=== PATIENT | male | born 1990 ===

== ENCOUNTER 2017-03-06 13:48 | Emergency (ER) | payer OTHER ==
[2017-03-06 14:27] VITALS: RESP 20
--- NOTE | 2017-03-06 15:23 | C.PDOC ---
History Of Present Illness 27 y/o male complaining of sore throat, congestion, and cough for the last three days without fever, chills, chest pain, shortness of breath, or other complaint. He has not tried any medications for his symptoms. Time Seen by Provider: 03/06/17 14:59 Chief Complaint (Nursing): Cough, Cold, Congestion History Per: Patient Onset/Duration Of Symptoms: Days (3) Current Symptoms Are (Timing): Still Present Location Of Pain: Throat Associated Symptoms: Sore Throat, Cough, Nasal Congestion. denies: Fever, Chills, Neck Pain, Sinus Drainage, Myalgias, Nausea, Vomiting, Diarrhea Severity: Moderate Recent travel outside of the [place]: No Additional History Per: Patient Past Medical History Vital Signs: Last Vital Signs Temp 98.4 F 03/06/17 16:36 Pulse 91 H 03/06/17 16:36 Resp 20 03/06/17 16:36 BP 137/79 03/06/17 16:36 Pulse Ox 98 03/06/17 18:05 - Medical History PMH: No Chronic Diseases Surgical History: Appendectomy - [facility] Procedures INJECT/INFUSE NEC (03/26/14) Family History: States: Unknown Family Hx - Social History Hx Alcohol Use: No Hx Substance Use: No - Immunization History Hx Tetanus Toxoid Vaccination: No Hx Influenza Vaccination: No Hx Pneumococcal Vaccination: No Review Of Systems Except As Marked, All Systems Reviewed And Found Negative. ENT: Positive for: Nose Congestion, Throat Pain Respiratory: Positive for: Cough Physical Exam - Physical Exam Appears: Well, Non-toxic, No Acute Distress Skin: Normal Color, Warm, Dry, No Rash Head: Atraumatic, Normacephalic Eye(s): bilateral: Normal Inspection, EOMI Ear(s): Bilateral: Normal Nose: No Discharge, No Epistaxis, No Tenderness, Other (+congestion) Oral Mucosa: Moist, No Drooling Tongue: Normal Appearing Throat: Normal, No Erythema, No Exudate, No Drooling, No Mass Neck: Normal, Normal ROM, Supple Lymphatic: Normal Exam Chest: Symmetrical Cardiovascular: Rhythm Regular Respiratory: Normal Breath Sounds Extremity: Normal ROM Neurological/Psych: Oriented x3, Normal Speech ED Course And Treatment O2 Sat by Pulse Oximetry: 98 Progress Note: discussed symptoms liekly viral, instructed symptomatic treatment. Medical Decision Making Medical Decision Making: Impression: URI Disposition - Disposition Disposition: HOME/ ROUTINE Disposition Time: 15:23 Condition: STABLE Additional Instructions: Follow up with your primary medical doctor or clinic in 2-5 days for further evaluation. Take medications as prescribed. Return to the emergency department at any time if symptoms persist or worsen. Prescriptions: Guaifen/Dextromethorphan/PE [Mucinex Fast-Max Congest-Cough] 1 each PO Q6 #20 tablet Naproxen [Naprosyn] 1 tab PO BID PRN #20 tab PRN Reason: Pain Oxymetazoline 0.05% [Afrin 0.05%] 1 spr NS Q12H #1 bottle Instructions: Upper Respiratory Infection (ED) Forms: [email or web address] ([place]) - Clinical Impression Clinical Impression: Upper respiratory infection - Scribe Statement The provider has reviewed the documentation as recorded by the Scribe (Eliza Nino)
[2017-03-06 16:37] VITALS: BP 137/79; PULSE 91; TEMP 98.4
[2017-03-06 18:05] VITALS: O2SAT 98
== END 2017-03-06 16:37 | disposition home or self-care (01) ==
LOC: C.ER 13:48
DX: J06.9 Acute upper respiratory infection, unspecified (principal)

== ENCOUNTER 2018-02-22 19:24 | Observation (INO) | payer OTHER ==
[2018-02-22] MEDS ORDERED: Sodium Chloride 0.9% 1,000 ML IV ONE (20:34)
[2018-02-22] MEDS ORDERED: Iohexol 240 (50 ml) PO STA (20:34)
--- NOTE | 2018-02-22 20:38 | C.PDOC ---
History Of Present Illness 28 y/o male c/o 2 days of vomiting and diarrhea yesterday with diarrhea only today (soft yellow stool) and subjective fever x 2 days. no recent travel. +sick contact of mother who had similar symptoms 4 days ago. pt tolerates gator zaki. seen by mother's pmd yesterday and given prilosec with no improvement. Time Seen by Provider: 02/22/18 20:23 Chief Complaint (Nursing): Fever History Per: Patient, Family History/Exam Limitations: no limitations Onset/Duration Of Symptoms: Days (2) Current Symptoms Are (Timing): Still Present Sick Contacts (Context): Family Member(s) Associated Symptoms: Fever, Vomiting, Diarrhea Ear Symptoms: Bilateral: None Past Medical History Reviewed: Historical Data, Nursing Documentation, Vital Signs Vital Signs: Last Vital Signs Temp 102.9 F H 02/22/18 20:13 Pulse 117 H 02/22/18 20:13 Resp 22 02/22/18 20:13 BP 128/83 02/22/18 20:13 Pulse Ox 100 02/22/18 20:13 - Medical History PMH: No Chronic Diseases Surgical History: Appendectomy, Tonsillectomy - [facility] Procedures INJECT/INFUSE NEC (03/26/14) Family History: States: Unknown Family Hx - Social History Hx Tobacco Use: No Hx Alcohol Use: No Hx Substance Use: No - Immunization History Hx Tetanus Toxoid Vaccination: No Hx Influenza Vaccination: No Hx Pneumococcal Vaccination: No Review Of Systems Constitutional: Positive for: Fever, Chills ENT: Negative for: Ear Pain Cardiovascular: Negative for: Chest Pain Respiratory: Negative for: Cough Gastrointestinal: Positive for: Nausea, Vomiting, Abdominal Pain, Diarrhea Genitourinary: Negative for: Dysuria, Frequency Skin: Negative for: Rash Neurological: Negative for: Weakness, Numbness Physical Exam - Physical Exam Appears: Non-toxic, Other (uncomfortable, obese. ) Skin: Normal Color, Dry, Other (hot) Head: Atraumatic, Normacephalic Eye(s): bilateral: Normal Inspection Oral Mucosa: Dry Tongue: Other (dry appearing) Lips: Other (chapped) Throat: No Erythema Neck: Supple Chest: No Deformity, No Tenderness Cardiovascular: No Rhythm Irregular, Other (tachycardic) Respiratory: No Decreased Breath Sounds, No Rales, No Rhonchi, No Wheezing Gastrointestinal/Abdominal: Bowel Sounds, Soft, Tenderness (ruq, epigastric and m,ild left upper quadrant tenderness) Back: No CVA Tenderness Extremity: Normal ROM, No Tenderness, No Swelling Neurological/Psych: Oriented x3, Normal Speech, Normal Cognition ED Course And Treatment - Laboratory Results Result Diagrams: 02/22/18 21:05 02/22/18 21:05 O2 Sat by Pulse Oximetry: 100 Medical Decision Making Medical Decision Makin28 y/o male with n/v/d, fever, x 2 days, with abdominal pain on exam; ddx incl udes gastroenteritis, cholecystitis, pancreatitis: will get labs, give ivf. pep--brigitte, ct scan and re-eval. 2300 ct results received with possible large bowel ileus. will contact surgery for consult. [phone] discussed with surgical services manager; no surgical intervention needed at this time. given pt's fever, ct results and bandemia, will admit to medicine. Dr Foley paged approx 1 am [address] Foley, will admit to his service. Disposition Discussed With : Zan Foley Doctor Will See Patient In The: Hospital Counseled Patient/Family Regarding: Studies Performed, Diagnosis, Need For Followup - Disposition Disposition: HOSPITALIZED Disposition Time: 01:46 Condition: STABLE - Clinical Impression Clinical Impression: Gastroenteritis, Bandemia, Dehydration, mild
[2018-02-22] MEDS ORDERED: Sodium Chloride 0.9% 1,000 ML ONE (21:05)
[2018-02-22 21:08] LABS: BASO % 0.2 % (0.0-2.0); EOS % 0.2 % (0.0-4.0); HEMOGLOBIN 15.2 g/dL (12.0-18.0); LYMPH # 0.3 K/uL (1.0-4.3); LYMPH % 3.8 % (20.0-40.0); MEAN CELL VOLUME 87.1 fL (80.0-94.0); MEAN CORPUSCULAR HEMOGLOBIN 29.5 pg (27.0-31.0); MEAN CORPUSCULAR HGB CONC 33.9 g/dL (33.0-37.0); MEAN PLATELET VOLUME 8.2 fL (7.2-11.7); MONO # 0.5 K/uL (0.0-0.8); NEUT # 7.4 K/uL (1.8-7.0); NEUT % 89.8 % (50.0-75.0); PLATELET COUNT 207 K/uL (130-400); RBC 5.16 Mil/uL (4.40-5.90); RED CELL DISTRIBUTION WIDTH 13.2 % (11.5-14.5); WHITE BLOOD COUNT 8.3 K/uL (4.8-10.8)
[2018-02-22] MEDS ORDERED: Iohexol 240 (50 ml) ONE (21:08)
[2018-02-22 21:22] LABS: ALB/GLOB RATIO 1.5 (1.0-2.1); ALBUMIN 4.3 g/dL (3.5-5.0); ALT/SGPT 78 U/L (21-72); AST/SGOT 61 U/L (17-59); BLOOD UREA NITROGEN 13 mg/dL (9-20); CALCIUM 8.6 mg/dl (8.6-10.4); GFR NON-AFRICAN AMERICAN > 60; LIPASE 37 U/L (23-300)
[2018-02-22] MEDS ORDERED: Iohexol 300 100 ML IJ ONE (21:31)
[2018-02-22 21:32] LABS: SQUAMOUS EPITHIAL < 1 /hpf (0-5); URINE BACTERIA RARE (<OCC); URINE BILIRUBIN NEGATIVE (NEGATIVE); URINE BLOOD 1+ (NEGATIVE); URINE CLARITY Clear (Clear); URINE COLOR Amber (YELLOW); URINE GLUCOSE (UA) NORMAL (Normal); URINE LEUKOCYTE ESTERASE NEG Leu/uL (Negative); URINE PROTEIN 1+ mg/dL (NEGATIVE)
[2018-02-22] MEDS ORDERED: Potassium Chloride 20 mEq ER Tab PO STA (21:37)
[2018-02-22 21:39] LABS: BANDS 5 % (0-2); LYMPHOCYTE 3 % (20-40); MONOCYTE 9 % (0-10); NEUTROPHIL 83 % (50-75); PLATELET ESTIMATE NORMAL (NORMAL); TOTAL CELLS COUNTED 100
[2018-02-22] MEDS ORDERED: Potassium Chloride 20 mEq ER Tab PO ONE (21:44)
--- NOTE | 2018-02-23 01:02 | CP.PCM.CON ---
<Luis Ryan - Last Filed: 02/23/18 00:58> History of Present Illness - History of Present Illness History of Present Illness: General Surgery Consult Re: Large bowel ileus, elevated T Bili HPI: 28M presented to the ED with 2 days of yellow diarrhea as well as NBNB emesis yesterday. Associated with fever x 2 days and mild diffuse abd pain. No recent travel. Mother had similar symptoms 4 days prior. Seen by PMD yesterday and given Omeprazole with some mild improvement. + trace blood in stool. Denies Headache, dizziness, chills, chest pain, SOB, nausea/emesis (at this time), dysuria, hematuria, melena, hematochezia, tenesmus PMH: Denies PSH: Appendectomy, Tonsillectomy SH: No tobacco, EtOH or drug use FH: Non contributory All: NKDA Meds: See MAR Review of Systems - Review of Systems All systems: reviewed and no additional remarkable complaints except (as per HPI) Past Patient History - Past Social History Smoking Status: Never Smoked - PSYCHIATRIC Hx Substance Use: No - SURGICAL HISTORY Hx Appendectomy: Yes Hx Tonsillectomy: Yes Meds Allergies/Adverse Reactions: Allergies Allergy/AdvReac Type Severity Reaction Status Date / Time No Known Allergies Allergy Verified 03/06/17 14:27 Physical Exam - Constitutional Appears: Non-toxic, No Acute Distress - Head Exam Head Exam: ATRAUMATIC, NORMOCEPHALIC - Eye Exam Eye Exam: EOMI. absent: Scleral icterus - ENT Exam ENT Exam: Mucous Membranes Dry, Normal Oropharynx - Neck Exam Neck exam: Positive for: Full Rom. Negative for: Lymphadenopathy, Tenderness Additional comments: trachea midline - Respiratory Exam Respiratory Exam: NORMAL BREATHING PATTERN. absent: Respiratory Distress - Cardiovascular Exam Cardiovascular Exam: RRR, +S1, +S2 - GI/Abdominal Exam GI & Abdominal Exam: Soft, Tenderness (trace in RUQ). absent: Distended, Firm, Guarding, Rebound, Rigid - Rectal Exam Rectal Exam: Deferred - Extremities Exam Extremities exam: Positive for: normal capillary refill, pedal pulses present. Negative for: calf tenderness, pedal edema - Back Exam Back exam: absent: CVA tenderness (L), CVA tenderness (R) - Neurological Exam Neurological exam: Alert, Oriented x3 - Psychiatric Exam Psychiatric exam: Normal Affect, Normal Mood - Skin Skin Exam: Dry, Warm Results - Vital Signs Recent Vital Signs: Last Vital Signs Temp 100.0 F H 02/23/18 00:00 Pulse 91 H 02/23/18 00:00 Resp 19 02/23/18 00:00 BP 109/71 02/23/18 00:00 Pulse Ox 100 02/23/18 00:00 - Labs Result Diagrams: 02/22/18 21:05 02/22/18 21:05 Labs: Laboratory Results - last 24 hr 02/22/18 02/22/18 02/22/18 21:05 21:05 21:05 WBC 8.3 RBC 5.16 Hgb 15.2 Hct 44.9 MCV 87.1 MCH 29.5 MCHC 33.9 RDW 13.2 Plt Count 207 MPV 8.2 Neut % (Auto) 89.8 H Lymph % (Auto) 3.8 L [place] % (Auto) 6.0 Eos % (Auto) 0.2 Baso % (Auto) 0.2 Neut # (Auto) 7.4 H Lymph # (Auto) 0.3 L [place] # (Auto) 0.5 Eos # (Auto) 0.0 Baso # (Auto) 0.0 Neutrophils % (Manual) 83 H Band Neutrophils % 5 H Lymphocytes % (Manual) 3 L Monocytes % (Manual) 9 Platelet Estimate Normal Sodium 137 Potassium 3.1 L Chloride 105 Carbon Dioxide 18 L Anion Gap 17 BUN 13 Creatinine 1.1 Est GFR ( Amer) > 60 Est GFR (Non-Af Amer) > 60 Random Glucose 108 Calcium 8.6 Total Bilirubin 1.4 H AST 61 H ALT 78 H Alkaline Phosphatase 73 Total Protein 7.2 Albumin 4.3 Globulin 2.8 Albumin/Globulin Ratio 1.5 Lipase 37 Urine Color [place] Urine Clarity Clear Urine pH 5.0 Ur Specific [place] 1.024 Urine Protein 1+ H Urine Glucose (UA) Normal Urine Ketones 1+ H Urine Blood 1+ H Urine Nitrate Negative Urine Bilirubin Negative Urine Urobilinogen 4.0 Ur Leukocyte Esterase Neg Urine WBC (Auto) 2 Urine RBC (Auto) 25 H Ur Squamous Epith Cells < 1 Urine Bacteria Rare - Imaging and Cardiology CT scan - abdomen Status: Image reviewed by me, Report reviewed by me Assessment & Plan - Assessment and Plan (Free Text) Assessment: 28M with gastroenteritis Plan: No surgical interventions required. Recommend rehydration and repletion of electrolytes for this medical issue. Will Sign off. D/W Dr. Lane Ryan PGY4 <Shelly Sherman - Last Filed: 02/25/18 09:38> Results - Vital Signs Recent Vital Signs: Last Vital Signs Temp 98.2 F 02/24/18 08:06 Pulse 68 02/24/18 08:06 Resp 20 02/24/18 08:06 BP 119/79 02/24/18 08:06 Pulse Ox 99 02/24/18 08:06 - Labs Result Diagrams: 02/24/18 07:49 02/24/18 07:49 Labs: Laboratory Results - last 24 hr 02/24/18 02/24/18 02/24/18 01:49 01:49 09:53 Stool Occult Blood Negative Stool Leukocytes, Qual Negative Hepatitis A IgM Ab Negative Hep Bs Antigen Negative Hep B Core IgM Ab Negative Hepatitis C Antibody Negative Assessment & Plan - Assessment and Plan (Free Text) Plan: Imaging reviewed and discussed with resident. Agree with above assessment and plan.
[2018-02-23] MEDS: Sodium Chloride 0.9% 1,000 ML IV SCH ×2 (01:29→06:15)
[2018-02-23] MEDS ORDERED: Sodium Chloride 0.9% 1,000 ML ONE (01:32)
[2018-02-23] MEDS: metroNIDAZOLE IV 500 mg/100 ml 500 MG/100 ML BAG IVPB SCH ×2 (02:37→14:08)
[2018-02-23] MEDS: Dextrose 5%/0.45% NS 1,000 ML IV SCH ×3 (02:52→19:00)
[2018-02-23 05:25] VITALS: RESP 20
[2018-02-23 07:10] LABS: BASO # 0.1 K/uL (0.0-0.2); BASO % 1.2 % (0.0-2.0); EOS # 0.2 K/uL (0.0-0.7); EOS % 2.2 % (0.0-4.0); HEMOGLOBIN 13.4 g/dL (12.0-18.0); LYMPH # 1.2 K/uL (1.0-4.3); LYMPH % 16.3 % (20.0-40.0); MEAN CELL VOLUME 87.8 fL (80.0-94.0); MEAN CORPUSCULAR HGB CONC 34.2 g/dL (33.0-37.0); MEAN PLATELET VOLUME 8.5 fL (7.2-11.7); MONO % 14.1 % (0.0-10.0); NEUT # 4.8 K/uL (1.8-7.0); NEUT % 66.2 % (50.0-75.0); RBC 4.46 Mil/uL (4.40-5.90); RED CELL DISTRIBUTION WIDTH 13.5 % (11.5-14.5); WHITE BLOOD COUNT 7.3 K/uL (4.8-10.8)
[2018-02-23 07:32] LABS: ALB/GLOB RATIO 1.4 (1.0-2.1); ALBUMIN 3.6 g/dL (3.5-5.0); ALT/SGPT 104 U/L (21-72); AST/SGOT 80 U/L (17-59); BLOOD UREA NITROGEN 10 mg/dL (9-20); CALCIUM 7.7 mg/dl (8.6-10.4); GFR NON-AFRICAN AMERICAN > 60
--- NOTE | 2018-02-23 14:13 | CP.PCM.HP ---
History of Present Illness - History of Present Illness History of Present Illness: CHIEF COMPLAINTS 28 years old male admitted with nausea vomiting and watery diarrhea. Patient is also complaining of abdominal cramps. Stools are yellowish watery. No blood. Patient also had low-grade fever. Mother also had a similar complaints. Patient was seen by the PMD was given Prilosec without any improvement Patient was seen in the emergency room CAT scan of the abdomen showed dilated loops considering adynamic ileus. Surgical evaluation was obtained and patient was treated with medical therapy only ROS. HEENT : N. Resp : No cough, wheezing ,pleuritic CP ,or hemoptysis Cardio : No anginal CP, PND, orthopnea, palpitation GI : No GI bleeding . [employer] : No headache, vertigo, focal deficit. Musculoskel : No joint swelling , Derm : No rash Psych : Normal affect. Ext : No swelling ,calf pain PE. Pt. is alert awake in no distress. V.S As noted in the chart Head ,ear nose,throat and eyes : Normal. Neck : Supple with normal carotids. Lungs: Clear air entry. Heart : S1 & S2 normal with S4. No murmur. Abd : Soft tender with normal bowel sounds. Neuro : Moves all ext. with no localized deficit. Ext : No edema with intact pulses.Non tender calves Derm : No rashes or decubitus ulcer. LABS/RADIOLOGY: ASSESSMENT/PLAN : Acute gastroenteritis with mild dehydration. IV fluids ID evaluation GI evaluation. Present on Admission - Present on Admission Any Indicators Present on Admission: No Past Patient History - Past Social History Smoking Status: Never Smoked - PSYCHIATRIC Hx Substance Use: No - SURGICAL HISTORY Hx Appendectomy: Yes Hx Tonsillectomy: Yes Meds Allergies/Adverse Reactions: Allergies Allergy/AdvReac Type Severity Reaction Status Date / Time No Known Allergies Allergy Verified 03/06/17 14:27 Results - Vital Signs Recent Vital Signs: Last Vital Signs Temp 98.2 F 02/23/18 03:25 Pulse 75 02/23/18 03:25 Resp 20 02/23/18 03:25 BP 114/74 02/23/18 03:25 Pulse Ox 100 02/23/18 06:50 - Labs Result Diagrams: 02/23/18 06:59 02/23/18 06:59 Labs: Laboratory Results - last 24 hr 02/22/18 02/22/18 02/22/18 21:05 21:05 21:05 WBC 8.3 RBC 5.16 Hgb 15.2 Hct 44.9 MCV 87.1 MCH 29.5 MCHC 33.9 RDW 13.2 Plt Count 207 MPV 8.2 Neut % (Auto) 89.8 H Lymph % (Auto) 3.8 L [place] % (Auto) 6.0 Eos % (Auto) 0.2 Baso % (Auto) 0.2 Neut # (Auto) 7.4 H Lymph # (Auto) 0.3 L [place] # (Auto) 0.5 Eos # (Auto) 0.0 Baso # (Auto) 0.0 Neutrophils % (Manual) 83 H Band Neutrophils % 5 H Lymphocytes % (Manual) 3 L Monocytes % (Manual) 9 Platelet Estimate Normal Sodium 137 Potassium 3.1 L Chloride 105 Carbon Dioxide 18 L Anion Gap 17 BUN 13 Creatinine 1.1 Est GFR ( Amer) > 60 Est GFR (Non-Af Amer) > 60 Random Glucose 108 Calcium 8.6 Total Bilirubin 1.4 H AST 61 H ALT 78 H Alkaline Phosphatase 73 Total Protein 7.2 Albumin 4.3 Globulin 2.8 Albumin/Globulin Ratio 1.5 Lipase 37 Urine Color [place] Urine Clarity Clear Urine pH 5.0 Ur Specific [place] 1.024 Urine Protein 1+ H Urine Glucose (UA) Normal Urine Ketones 1+ H Urine Blood 1+ H Urine Nitrate Negative Urine Bilirubin Negative Urine Urobilinogen 4.0 Ur Leukocyte Esterase Neg Urine WBC (Auto) 2 Urine RBC (Auto) 25 H Ur Squamous Epith Cells < 1 Urine Bacteria Rare C. difficile Ag & Toxin 02/23/18 02/23/18 02/23/18 01:30 06:59 06:59 WBC 7.3 RBC 4.46 Hgb 13.4 Hct 39.2 MCV 87.8 MCH 30.0 MCHC 34.2 RDW 13.5 Plt Count 185 MPV 8.5 Neut % (Auto) 66.2 Lymph % (Auto) 16.3 L [place] % (Auto) 14.1 H Eos % (Auto) 2.2 Baso % (Auto) 1.2 Neut # (Auto) 4.8 Lymph # (Auto) 1.2 [place] # (Auto) 1.0 H Eos # (Auto) 0.2 Baso # (Auto) 0.1 Neutrophils % (Manual) Band Neutrophils % Lymphocytes % (Manual) Monocytes % (Manual) Platelet Estimate Sodium 136 Potassium 3.1 L Chloride 105 Carbon Dioxide 19 L Anion Gap 15 BUN 10 Creatinine 1.0 Est GFR ( Amer) > 60 Est GFR (Non-Af Amer) > 60 Random Glucose 117 H Calcium 7.7 L Total Bilirubin 0.9 AST 80 H D ALT 104 H D Alkaline Phosphatase 62 Total Protein 6.1 L Albumin 3.6 Globulin 2.5 Albumin/Globulin Ratio 1.4 Lipase Urine Color Urine Clarity Urine pH Ur Specific [place] Urine Protein Urine Glucose (UA) Urine Ketones Urine Blood Urine Nitrate Urine Bilirubin Urine Urobilinogen Ur Leukocyte Esterase Urine WBC (Auto) Urine RBC (Auto) Ur Squamous Epith Cells Urine Bacteria C. difficile Ag & Toxin Negative
[2018-02-23] MEDS ORDERED: Azithromycin 500 MG in Sodium Chloride 0.9% 250 ML IVPB STA (14:58)
--- NOTE | 2018-02-23 15:00 | CP.PCM.CON ---
History of Present Illness - History of Present Illness History of Present Illness: INFECTIOUS DISEASE CONSULT HPI: 28M presented to the ED with 2 days of WATERY diarrhea as well as NBNB emesis yesterday. Associated with fever x 2 days UP TO 102.3 and mild diffuse abd pain. Mother had similar symptoms 4 days prior. Seen by PMD yesterday and given Omeprazole with some mild improvement. + trace blood in stool. Denies Headache, dizziness, chills, chest pain, SOB, nausea/emesis (at this time), dysuria, hematuria, melena, hematochezia, tenesmus. patient was started on IV Flagyl as noted. Patient's LFTs were found to be elevated with AST of 80, Alt 104, normal alkaline phosphatase Patient denies any history of previous hepatitis. History obtained mainly from the mother was at the bedside. STOOL CULTURE REPORTED POSITIVE FOR GRAM-NEGATIVE MATIAS. INFECTIOUS DISEASE CONSULTATION REQUESTED BY PMD PMH: Denies PSH: Appendectomy, Tonsillectomy SH: No tobacco, EtOH or drug use FH: Non contributory All: NKDA Meds: See MAR Review of Systems - Constitutional Constitutional: Chills, Fever - Cardiovascular Cardiovascular: absent: Chest Pain - Respiratory Respiratory: absent: Cough, Hemoptysis - Gastrointestinal Gastrointestinal: Abdominal Pain, Diarrhea, Loose Stools, Nausea, Vomiting - Genitourinary Genitourinary: absent: Dysuria, Freq UTI - Neurological Neurological: absent: Headaches - Hematologic/Lymphatic Hematologic: As Per HPI. absent: Easy Bleeding, Easy Bruising Past Patient History - Past Social History Smoking Status: Never Smoked - PSYCHIATRIC Hx Substance Use: No - SURGICAL HISTORY Hx Appendectomy: Yes Hx Tonsillectomy: Yes Meds Allergies/Adverse Reactions: Allergies Allergy/AdvReac Type Severity Reaction Status Date / Time No Known Allergies Allergy Verified 03/06/17 14:27 - Medications Medications: Current Medications Dextrose/Sodium Chloride (Dextrose 5%/0.45% Ns 1000 Ml) 1,000 mls @ 120 mls/hr IV .Q8H20M [facility] Last Admin: 02/23/18 10:22 Dose: 120 mls/hr Cefepime HCl (Maxipime Iv 1 Gm Premix) 1 gm in 50 mls @ 100 mls/hr IVPB Q8H [facility]; Protocol Azithromycin 500 mg/ Sodium (Chloride) 250 mls @ 250 mls/hr IVPB STAT STA; Protocol Stop: 02/23/18 15:57 Influenza Virus Vaccine (Fluzone Quad [id number]) 60 mcg IM .ONCE ONE Stop: 02/25/18 10:01 Pantoprazole Sodium (Protonix Inj) 40 mg IVP DAILY [place] Last Admin: 02/23/18 10:22 Dose: 40 mg Results - Vital Signs Recent Vital Signs: Last Vital Signs Temp 98.2 F 02/23/18 03:25 Pulse 75 02/23/18 03:25 Resp 20 02/23/18 03:25 BP 114/74 02/23/18 03:25 Pulse Ox 100 02/23/18 06:50 - Labs Result Diagrams: 02/24/18 07:49 02/24/18 07:49 Labs: Laboratory Results - last 24 hr 02/22/18 02/22/18 02/22/18 21:05 21:05 21:05 WBC 8.3 RBC 5.16 Hgb 15.2 Hct 44.9 MCV 87.1 MCH 29.5 MCHC 33.9 RDW 13.2 Plt Count 207 MPV 8.2 Neut % (Auto) 89.8 H Lymph % (Auto) 3.8 L [place] % (Auto) 6.0 Eos % (Auto) 0.2 Baso % (Auto) 0.2 Neut # (Auto) 7.4 H Lymph # (Auto) 0.3 L [place] # (Auto) 0.5 Eos # (Auto) 0.0 Baso # (Auto) 0.0 Neutrophils % (Manual) 83 H Band Neutrophils % 5 H Lymphocytes % (Manual) 3 L Monocytes % (Manual) 9 Platelet Estimate Normal Sodium 137 Potassium 3.1 L Chloride 105 Carbon Dioxide 18 L Anion Gap 17 BUN 13 Creatinine 1.1 Est GFR ( Amer) > 60 Est GFR (Non-Af Amer) > 60 Random Glucose 108 Calcium 8.6 Total Bilirubin 1.4 H AST 61 H ALT 78 H Alkaline Phosphatase 73 Total Protein 7.2 Albumin 4.3 Globulin 2.8 Albumin/Globulin Ratio 1.5 Lipase 37 Urine Color [place] Urine Clarity Clear Urine pH 5.0 Ur Specific [place] 1.024 Urine Protein 1+ H Urine Glucose (UA) Normal Urine Ketones 1+ H Urine Blood 1+ H Urine Nitrate Negative Urine Bilirubin Negative Urine Urobilinogen 4.0 Ur Leukocyte Esterase Neg Urine WBC (Auto) 2 Urine RBC (Auto) 25 H Ur Squamous Epith Cells < 1 Urine Bacteria Rare C. difficile Ag & Toxin 02/23/18 02/23/18 02/23/18 01:30 06:59 06:59 WBC 7.3 RBC 4.46 Hgb 13.4 Hct 39.2 MCV 87.8 MCH 30.0 MCHC 34.2 RDW 13.5 Plt Count 185 MPV 8.5 Neut % (Auto) 66.2 Lymph % (Auto) 16.3 L [place] % (Auto) 14.1 H Eos % (Auto) 2.2 Baso % (Auto) 1.2 Neut # (Auto) 4.8 Lymph # (Auto) 1.2 [place] # (Auto) 1.0 H Eos # (Auto) 0.2 Baso # (Auto) 0.1 Neutrophils % (Manual) Band Neutrophils % Lymphocytes % (Manual) Monocytes % (Manual) Platelet Estimate Sodium 136 Potassium 3.1 L Chloride 105 Carbon Dioxide 19 L Anion Gap 15 BUN 10 Creatinine 1.0 Est GFR ( Amer) > 60 Est GFR (Non-Af Amer) > 60 Random Glucose 117 H Calcium 7.7 L Total Bilirubin 0.9 AST 80 H D ALT 104 H D Alkaline Phosphatase 62 Total Protein 6.1 L Albumin 3.6 Globulin 2.5 Albumin/Globulin Ratio 1.4 Lipase Urine Color Urine Clarity Urine pH Ur Specific [place] Urine Protein Urine Glucose (UA) Urine Ketones Urine Blood Urine Nitrate Urine Bilirubin Urine Urobilinogen Ur Leukocyte Esterase Urine WBC (Auto) Urine RBC (Auto) Ur Squamous Epith Cells Urine Bacteria C. difficile Ag & Toxin Negative - Imaging and Cardiology CT scan - abdomenAND PELVIS. Status: Report reviewed by me Assessment & Plan (1) Abdominal pain Status: Acute (2) Gastroenteritis Status: Acute - Assessment and Plan (Free Text) Plan: PLAN; PANCULTURES DIARRHEA WORKUP IN PROGRESS. ENTERIC PRECAUTIONS. STOOL CULTURE SHOWING GRAM-NEGATIVE MATIAS-PENDING CULTURES WILL INITIATE CEFEPIME 1 G EVERY 8 [id number]/18. 1 DOSE OF zITHROMAX 500 MG. DC IV fLAGYL FOR NOW. AWAIT CULTURES OF THE STOOL , CANNOT RULE OUT SALMONELLA GASTROENTERITIS. WILL FOLLOW CULTURES AND MAKE FURTHER RECOMMENDATIONS. WILL FOLLOW WITH YOU. CASE DISCUSSED WITH THE MOTHER AT BEDSIDE.
[2018-02-23] MEDS: Cefepime IV 1 gm in Dextrose 1 GM/50 ML BAG IVPB SCH ×2 (15:20→22:00)
--- NOTE | 2018-02-23 18:07 | CT ---
Date of service: 02/22/2018 PROCEDURE: CT Abdomen and Pelvis with contrast HISTORY: abd pain COMPARISON: None. TECHNIQUE: Contrast dose: 100 mL Omnipaque 300 Radiation dose: Total exam DLP = 1217.65 mGy-cm. This CT exam was performed using one or more of the following dose reduction techniques: Automated exposure control, adjustment of the mA and/or kV according to patient size, and/or use of iterative reconstruction technique. FINDINGS: LOWER THORAX: Unremarkable. LIVER: Normal size, contour. Low attenuation consistent with fatty infiltration. No mass. No biliary dilatation. GALLBLADDER AND BILE DUCTS: Unremarkable. PANCREAS: Unremarkable. No gross lesion or ductal dilatation. SPLEEN: Minimal splenomegaly. The spleen measures approximately 13.2 cm in greatest dimension. No mass. ADRENALS: Unremarkable. No mass. KIDNEYS AND URETERS: Unremarkable. No hydronephrosis. No solid mass. VASCULATURE: Unremarkable. No aortic aneurysm. No aortic atherosclerotic calcification or mural plaque present. BOWEL: No bowel obstruction. No abnormal bowel loops. APPENDIX: Not positively identified. No secondary findings to suggest acute appendicitis. PERITONEUM: Unremarkable. No free fluid. No free air. LYMPH NODES: Unremarkable. No enlarged lymph nodes. BLADDER: Poorly distended REPRODUCTIVE: Normal prostate BONES: No acute fracture. OTHER FINDINGS: None. IMPRESSION: No evidence of acute appendicitis. No inflammatory process identified. Mild fatty infiltration of the liver. Minimal splenomegaly. The preliminary findings for this examination were reported by [facility] at 10:45 p.m. on 02/22/2018. There is discordance of this report with the preliminary findings.
[2018-02-24 00:13] VITALS: O2SAT 99
[2018-02-24] MEDS: Dextrose 5%/0.45% NS 1,000 ML IV SCH ×2 (01:38→10:37)
[2018-02-24] MEDS: Cefepime IV 1 gm in Dextrose 1 GM/50 ML BAG IVPB SCH ×2 (06:14→14:05)
--- NOTE | 2018-02-24 06:59 | CP.PCM.CON ---
History of Present Illness - History of Present Illness History of Present Illness: Asked by Dr. Foley for a GI consultation on this patient. 28 year old male with history of obesity (BMI 35), cognitive deficit, who presents to hospital with complaint of nausea, vomiting, diarrhea which began 2 days ago. Prior to t his he was in usual state of health. He describes multiple episodes of non- bloody emesis and diarrhea which has gotten progressively less over the past two days. He denies abdominal pain, fever/chills, weight loss, rectal bleeding, recent travel, antibiotic use. He does note sick contacts, his mother had recent similar symptoms last week. He denies unusual food consumption prior to symptom onset. No prior endoscopic evaluation. Review of vitals from today are normal. Social history: non-smoker, no ETOH use Family history: reviewed, patient denies GI malignancies Review of Systems - Review of Systems Review of Systems: - All other comprehensive 12 point review of systems performed, negative - Cardiovascular Cardiovascular: absent: Acrocyanosis, Chest Pain, Chest Pain at Rest, Chest Pain with Activity, Claudication, Diaphoresis, Dyspnea, Dyspnea on Exertion, Edema, Irregular Heart Rhythm, Pain Radiating to Arm/Neck/Jaw, Leg Edema, Leg Ulcers, Lightheadedness, Orthopnea, Palpitations, Paroxysmal Nocturnal Dyspnea, Pedal Edema, Radiating Pain, Rapid Heart Rate, Slow Heart Rate, Syncope, Other - Respiratory Respiratory: absent: Cough, Dyspnea, Hemoptysis, Dyspnea on Exertion, Wheezing, Snoring, Stridor, Pain on Inspiration, Chest Congestion, Excessive Mucous Production, Change in Mucous Color, Pain with Coughing, Other - Gastrointestinal Gastrointestinal: Diarrhea - Musculoskeletal Musculoskeletal: absent: Abnormal Gait, Arthralgias, Atrophy, Back Pain, Deformity, Joint Swelling, Limited Range of Motion, Loss of Height, Muscle Cramps, Muscle Weakness, Myalgias, Neck Pain, Numbness, Radiating Pain into Limb, Stiffness, Tingling, Other - Neurological Neurological: absent: Abnormal Gait, Abnormal Hearing, Abnormal Movements, Abnormal Speech, Behavioral Changes, Burning Sensations, Confusion, Convulsions, Disequilibrium, Dizziness, Numbness, Focal Weakness, Frequent Falls, Headaches, Lack of Coordination, Loss of Vision, Memory Loss, Paresthesias, Radicular Pain, Restless Legs, Sensory Deficit, Syncope, Tingling, Tremor, Vertigo, Weakness, Other Visual Disturbances, Other Past Patient History - Past Social History Smoking Status: Never Smoked - PSYCHIATRIC Hx Substance Use: No - SURGICAL HISTORY Hx Appendectomy: Yes Hx Tonsillectomy: Yes Meds Allergies/Adverse Reactions: Allergies Allergy/AdvReac Type Severity Reaction Status Date / Time No Known Allergies Allergy Verified 03/06/17 14:27 - Medications Medications: Current Medications Dextrose/Sodium Chloride (Dextrose 5%/0.45% Ns 1000 Ml) 1,000 mls @ 120 mls/hr IV .Q8H20M [facility] Last Admin: 02/24/18 01:38 Dose: 120 mls/hr Cefepime HCl (Maxipime Iv 1 Gm Premix) 1 gm in 50 mls @ 100 mls/hr IVPB Q8H [facility]; Protocol Last Admin: 02/24/18 06:14 Dose: 100 mls/hr Influenza Virus Vaccine (Fluzone Quad [id number]) 60 mcg IM .ONCE ONE Stop: 02/25/18 10:01 Pantoprazole Sodium (Protonix Inj) 40 mg IVP DAILY [facility] Last Admin: 02/23/18 10:22 Dose: 40 mg Physical Exam - Constitutional Appears: Non-toxic, No Acute Distress - Head Exam Head Exam: NORMAL INSPECTION - Eye Exam Eye Exam: EOMI, Normal appearance - ENT Exam ENT Exam: Mucous Membranes Moist - Respiratory Exam Respiratory Exam: Clear to Auscultation Bilateral - Cardiovascular Exam Cardiovascular Exam: REGULAR RHYTHM, +S1, +S2 - GI/Abdominal Exam GI & Abdominal Exam: Normal Bowel Sounds, Soft Additional comments: obese, non-tender to palpation in four quadrants no palpable hepato/splenomegaly - Extremities Exam Extremities exam: Positive for: normal inspection - Neurological Exam Neurological exam: Alert, CN II-XII Intact, Oriented x3, Reflexes Normal - Psychiatric Exam Psychiatric exam: Normal Affect, Normal Mood - Skin Skin Exam: Dry, Intact, Normal Color, Warm Results - Vital Signs Recent Vital Signs: Last Vital Signs Temp 98.5 F 02/24/18 00:11 Pulse 72 02/24/18 00:11 Resp 20 02/24/18 00:11 BP 134/80 02/24/18 00:11 Pulse Ox 99 02/24/18 00:11 - Labs Result Diagrams: 02/23/18 06:59 02/23/18 06:59 Labs: Laboratory Results - last 24 hr 12/02/23/18 02/23/18 01:30 06:59 06:59 WBC 7.3 RBC 4.46 Hgb 13.4 Hct 39.2 MCV 87.8 MCH 30.0 MCHC 34.2 RDW 13.5 Plt Count 185 MPV 8.5 Neut % (Auto) 66.2 Lymph % (Auto) 16.[address] [place] % (Auto) 14.1 H Eos % (Auto) 2.2 Baso % (Auto) 1.2 Neut # (Auto) 4.8 Lymph # (Auto) 1.2 [place] # (Auto) 1.0 H Eos # (Auto) 0.2 Baso # (Auto) 0.1 Sodium 136 Potassium 3.1 L Chloride 105 Carbon Dioxide 19 L Anion Gap 15 BUN 10 Creatinine 1.0 Est GFR ( Amer) > 60 Est GFR (Non-Af Amer) > 60 Random Glucose 117 H Calcium 7.7 L Total Bilirubin 0.9 AST 80 H D ALT 104 H D Alkaline Phosphatase 62 Total Protein 6.1 L Albumin 3.6 Globulin 2.5 Albumin/Globulin Ratio 1.4 C. difficile Ag & Toxin Negative Assessment & Plan - Assessment and Plan (Free Text) Assessment: Obesity Cognitive deficit Nausea, vomiting, diarrhea - suggestive of viral gastroenteritis given clinical scenario Transaminitis CT imaging reviewed by me showing hepatic steatosis Plan: - Diet as tolerated - Follow up stool studies - Obtain viral hepatitis panel, continue to monitor LFTs - From GI standpoint, no clear indication for antibiotic therapy, would disc ontinue. Follow up ID recommendations. - If patient tolerating PO diet can likely discharge home with subsequent outpatient follow up
[2018-02-24 07:59] LABS: BASO % 0.4 % (0.0-2.0); EOS # 0.1 K/uL (0.0-0.7); EOS % 2.2 % (0.0-4.0); LYMPH # 2.2 K/uL (1.0-4.3); LYMPH % 35.1 % (20.0-40.0); MEAN CELL VOLUME 86.1 fL (80.0-94.0); MEAN CORPUSCULAR HEMOGLOBIN 30.5 pg (27.0-31.0); MEAN CORPUSCULAR HGB CONC 35.5 g/dL (33.0-37.0); MEAN PLATELET VOLUME 8.2 fL (7.2-11.7); MONO # 0.8 K/uL (0.0-0.8); MONO % 12.1 % (0.0-10.0); NEUT # 3.2 K/uL (1.8-7.0); NEUT % 50.2 % (50.0-75.0); RBC 4.59 Mil/uL (4.40-5.90); RED CELL DISTRIBUTION WIDTH 13.3 % (11.5-14.5); WHITE BLOOD COUNT 6.3 K/uL (4.8-10.8)
[2018-02-24 08:07] VITALS: BP 119/79; PULSE 68; TEMP 98.2
[2018-02-24 08:11] LABS: ALB/GLOB RATIO 1.3 (1.0-2.1); ALBUMIN 3.6 g/dL (3.5-5.0); ALT/SGPT 104 U/L (21-72); AST/SGOT 55 U/L (17-59); BLOOD UREA NITROGEN 5 mg/dL (9-20); CALCIUM 8.5 mg/dl (8.6-10.4); GFR NON-AFRICAN AMERICAN > 60
[2018-02-24 10:36] LABS: HEPATITIS B SURFACE AG Negative (NEGATIVE)
[2018-02-24 10:42] LABS: HEPATITIS A IGM NEGATIVE (NEGATIVE); HEPATITIS B CORE AB NEGATIVE (NEGATIVE)
[2018-02-24 10:54] LABS: HEPATITIS C ANTIBODY NEGATIVE (NEGATIVE)
--- NOTE | 2018-02-24 13:53 | CP.PCM.PN ---
Subjective - Date & Time of Evaluation Date of Evaluation: 02/24/18 Time of Evaluation: 13:51 - Subjective Subjective: PGY3 AMA note Patient wishes to leave against medical advice mother is in room; patient is developmentally disabled; mother said it was OK for the son to sign the paperwork but infomration wsa provided to her and to the son The patient was here for gastroenteritis; receiving IVF and the patient and his mother want to leave the hospital against medical advice Form was signed and witnessed by nursing staff patient looks good, morbidly obese, developmentally disabled head: NCAT chest: no pain on palpation lungs: CTA b/l ab: non tender non distended however patient frequently belching Extrem: no swelling psych: slow to respond however understands what you are saying Vijay Coreas PGY3 Objective - Vital Signs/Intake and Output Vital Signs (last 24 hours): Temp Pulse Resp BP Pulse Ox 98.2 F 68 20 119/79 99 02/24/18 08:06 02/24/18 08:06 02/24/18 08:06 02/24/18 08:06 02/24/18 08:06 Intake and Output: 02/24/18 02/24/18 06:59 18:59 Intake Total 720 Balance 720 - Medications Medications: Current Medications Dextrose/Sodium Chloride (Dextrose 5%/0.45% Ns 1000 Ml) 1,000 mls @ 120 mls/hr IV .Q8H20M [facility] Last Admin: 02/24/18 10:37 Dose: 120 mls/hr Cefepime HCl (Maxipime Iv 1 Gm Premix) 1 gm in 50 mls @ 100 mls/hr IVPB Q8H [facility]; Protocol Last Admin: 02/24/18 06:14 Dose: 100 mls/hr Influenza Virus Vaccine (Fluzone Quad [id number]) 60 mcg IM .ONCE ONE Stop: 02/25/18 10:01 Pantoprazole Sodium (Protonix Inj) 40 mg IVP DAILY [facility] Last Admin: 02/24/18 09:23 Dose: 40 mg - Labs Labs: 02/24/18 07:49 02/24/18 07:49
--- NOTE | 2018-02-24 16:44 | CP.PCM.DIS ---
Provider - Provider Date of Admission: 02/23/18 01:48 Attending physician: Zan Foley MD Consults: 02/22/18 23:05 General Surgery Consult Stat Comment: Consulting Provider: Shelly Sherman Consulting Physician: Shelly Sherman Reason for Consult: large bowel ileus 02/23/18 13:13 Infectious Disease Consult Routine Comment: Consulting Provider: Melina Nava Consulting Physician: Melina Nava Reason for Consult: Dx Gastroenteritis 02/23/18 13:15 Gastroenterology Consult Routine Comment: Consulting Provider: Jose Cruz Feldman Consulting Physician: Jose Cruz Feldman Reason for Consult: Dx Dx Gastroenteritis Time Spent in preparation of Discharge (in minutes): 32 Hospital Course - Lab Results Lab Results: Micro Results 02/22/18 20:34 Stool Stool Culture - Final NO SALMONELLA, SHIGELLA OR CAMPYLOBACTER ISOLATED. 02/23/18 01:30 Blood-Venous Blood Culture - Preliminary NO GROWTH AFTER 24 HOURS 02/23/18 01:00 Blood-Venous Blood Culture - Preliminary NO GROWTH AFTER 24 HOURS Most Recent Lab Values WBC 6.3 K/uL (4.8-10.8) 02/24/18 07:49 RBC 4.59 Mil/uL (4.40-5.90) 02/24/18 07:49 Hgb 14.0 g/dL (12.0-18.0) 02/24/18 07:49 Hct 39.5 % (35.0-51.0) 02/24/18 07:49 MCV 86.1 fL (80.0-94.0) 02/24/18 07:49 MCH 30.5 pg (27.0-31.0) 02/24/18 07:49 MCHC 35.5 g/dL (33.0-37.0) 02/24/18 07:49 RDW 13.3 % (11.5-14.5) 02/24/18 07:49 Plt Count 209 K/uL (130-400) 02/24/18 07:49 MPV 8.2 fL (7.2-11.7) 02/24/18 07:49 Neut % (Auto) 50.2 % (50.0-75.0) 02/24/18 07:49 Lymph % (Auto) 35.1 % (20.0-40.0) 02/24/18 07:49 [place] % (Auto) 12.1 % (0.0-10.0) H 02/24/18 07:49 Eos % (Auto) 2.2 % (0.0-4.0) 02/24/18 07:49 Baso % (Auto) 0.4 % (0.0-2.0) 02/24/18 07:49 Neut # (Auto) 3.2 K/uL (1.8-7.0) 02/24/18 07:49 Lymph # (Auto) 2.2 K/uL (1.0-4.3) 02/24/18 07:49 Mcleod # (Auto) 0.8 K/uL (0.0-0.8) 02/24/18 07:49 Eos # (Auto) 0.1 K/uL (0.0-0.7) 02/24/18 07:49 Baso # (Auto) 0.0 K/uL (0.0-0.2) 02/24/18 07:49 Neutrophils % (Manual) 83 % (50-75) H 02/22/18 21:05 Band Neutrophils % 5 % (0-2) H 02/22/18 21:05 Lymphocytes % (Manual) 3 % (20-40) L 02/22/18 21:05 Monocytes % (Manual) 9 % (0-10) 02/22/18 21:05 Platelet Estimate Normal (NORMAL) 02/22/18 21:05 Sodium 140 mmol/L (132-148) 02/24/18 07:49 Potassium 3.2 mmol/L (3.6-5.2) L 02/24/18 07:49 Chloride 109 mmol/L (98-107) H 02/24/18 07:49 Carbon Dioxide 22 mmol/L (22-30) 02/24/18 07:49 Anion Gap 12 (10-20) 02/24/18 07:49 BUN 5 mg/dL (9-20) L 02/24/18 07:49 Creatinine 0.9 mg/dL (0.8-1.5) 02/24/18 07:49 Est GFR ( Amer) > 60 02/24/18 07:49 Est GFR (Non-Af Amer) > 60 02/24/18 07:49 Random Glucose 98 mg/dL (75-110) 02/24/18 07:49 Calcium 8.5 mg/dl (8.6-10.4) L 02/24/18 07:49 Total Bilirubin 0.6 mg/dL (0.2-1.3) 02/24/18 07:49 AST 55 U/L (17-59) 02/24/18 07:49 ALT 104 U/L (21-72) H 02/24/18 07:49 Alkaline Phosphatase 65 U/L (38-126) 02/24/18 07:49 Total Protein 6.4 g/dL (6.3-8.3) 02/24/18 07:49 Albumin 3.6 g/dL (3.5-5.0) 02/24/18 07:49 Globulin 2.7 gm/dL (2.2-3.9) 02/24/18 07:49 Albumin/Globulin Ratio 1.3 (1.0-2.1) 02/24/18 07:49 Lipase 37 U/L (23-300) 02/22/18 21:05 Urine Color [place] (YELLOW) 02/22/18 21:05 Urine Clarity Clear (Clear) 02/22/18 21:05 Urine pH 5.0 (5.0-8.0) 02/22/18 21:05 Ur Specific [place] 1.024 (1.003-1.030) 02/22/18 21:05 Urine Protein 1+ mg/dL (NEGATIVE) H 02/22/18 21:05 Urine Glucose (UA) Normal mg/dL (Normal) 02/22/18 21:05 Urine Ketones 1+ mg/dL (NEGATIVE) H 02/22/18 21:05 Urine Blood 1+ (NEGATIVE) H 02/22/18 21:05 Urine Nitrate Negative (NEGATIVE) 02/22/18 21:05 Urine Bilirubin Negative (NEGATIVE) 02/22/18 21:05 Urine Urobilinogen 4.0 mg/dL (0.2-1.0) 02/22/18 21:05 Ur Leukocyte Esterase Neg [place]/uL (Negative) 02/22/18 21:05 Urine WBC (Auto) 2 /hpf (0-5) 02/22/18 21:05 Urine RBC (Auto) 25 /hpf (0-3) H 02/22/18 21:05 Ur Squamous Epith Cells < 1 /hpf (0-5) 02/22/18 21:05 Urine Bacteria Rare (<OCC) 02/22/18 21:05 Stool Occult Blood Negative (NEGATIVE) 02/24/18 01:49 C. difficile Ag & Toxin Negative (NEGATIVE) 02/23/18 01:30 Hepatitis A IgM Ab Negative (NEGATIVE) 02/24/18 09:53 Hep Bs Antigen Negative (NEGATIVE) 02/24/18 09:53 Hep B Core IgM Ab Negative (NEGATIVE) 02/24/18 09:53 Hepatitis C Antibody Negative (NEGATIVE) 02/24/18 09:53 - Hospital Course Hospital Course: 28 years old male admitted with nausea vomiting and watery diarrhea. Patient is also complaining of abdominal cramps. Stools are yellowish watery. No blood. Patient also had low-grade fever. Mother also had a similar complaints. Patient was seen by the PMD was given Prilosec without any improvement Patient was seen in the emergency room CAT scan of the abdomen showed dilated loops considering adynamic ileus. Surgical evaluation was obtained and patient was treated with medical therapy only Patient was admitted on the floor. IV antibiotics and IV fluids were given. Infectious disease and gastroenterology consults were obtained. Patient partially improved on above therapy. Stool studies are still pending. The mother met patient signed out AGAINST MEDICAL ADVICE in spite of explaining to her that the patient will benefit further with IV fluids and the work up is in complete. Patient has developmental problems still signed out AGAINST MEDICAL ADVICE the mother has taken the full responsibility. Discharge Exam - Head Exam Head Exam: NORMAL INSPECTION Discharge Plan - Follow Up Plan Condition: STABLE Disposition: AGAINST MEDICAL ADVICE Instructions: Viral Gastroenteritis, Adult (DC)
[2018-02-25] MEDS ORDERED: Influenza Vaccine 60 MCG/0.5 ML SYR (3 yr & up) IM ONE (10:00)
== END 2018-02-24 14:10 | disposition left against medical advice (07) ==
LOC: C.ER 19:24 → C.3T 02-23 01:48
PROVIDERS: ADMIT Internal Medicine Cardiovascular Disease; ATTEND Internal Medicine Cardiovascular Disease
DX: K52.9 Noninfective gastroenteritis and colitis, unspecified (principal); D72.825 Bandemia; E66.01 Morbid (severe) obesity due to excess calories; E86.0 Dehydration; K56.7 Ileus, unspecified; K76.0 Fatty (change of) liver, not elsewhere classified; Z90.49 Acquired absence of other specified parts of digestive tract
CPT/HCPCS: 36415; 74177; 80053; 80074; 81001; 83690; 85025; 86768; 87040; 87045; 87230; 87329; 87449; 89055; 96374; 99285; C9113; G0328; G0378; J0456; J0692; J3480; J7030; J7042; J7050; Q9966; Q9967